=== PATIENT | male | born 1965 | race Caucasian/White ===

== ENCOUNTER 2017-06-29 09:55 | Emergency (ER) | payer SELFPAY ==
[2017-06-29] MEDS ORDERED: Tetan/Diph/Pertus SYR(Tdap)* 0.5 ML SYR(BOOSTRIX) use SYR IM ONE (11:11)
[2017-06-29] MEDS ORDERED: Lidocaine 2% PF * 5 ML VIAL INJ ONE (11:35)
--- NOTE | 2017-06-29 12:11 | UC ---
Laceration HPI - HPI Summary HPI Summary: 930 AM CUT LEFT THUMB ON CAN LID - History Of Current Complaint Chief Complaint: UCLaceration Stated Complaint: HAND LAC/INJURY Time Seen by Provider: 06/29/17 11:09 Hx Obtained From: Patient Laceration Location: Finger - left thumb Mechanism Of Injury: Sharp Trauma Onset/Duration: Sudden Onset, Lasting Hours Severity: Moderate - Allergies/Home Medications Allergies/Adverse Reactions: Allergies Allergy/AdvReac Type Severity Reaction Status Date / Time No Known Allergies Allergy Verified 06/29/17 10:55 Home Medications: Home Medications NK [No Home Medications Reported] 06/29/17 [History Confirmed 06/29/17] PMH/Surg Hx/FS Hx/Imm Hx Previously Healthy: Yes - Surgical History Surgical History: Yes Surgery Procedure, Year, and Place: knee - Family History Known Family History: Negative: Blood Disorder - Social History Occupation: Employed Full-time Lives: With Family Alcohol Use: None Substance Use Type: None Smoking Status (MU): Never Smoked Tobacco Review of Systems Constitutional: Negative Skin: Other - LACERATION LEFT THUMB Eyes: Negative ENT: Negative Respiratory: Negative Cardiovascular: Negative Gastrointestinal: Negative Genitourinary: Negative Motor: Negative Neurovascular: Negative Musculoskeletal: Negative Neurological: Negative Psychological: Negative All Other Systems Reviewed And Are Negative: Yes Physical Exam Triage Information Reviewed: Yes Appearance: Well-Appearing, No Pain Distress, Well-Nourished Vital Signs: Initial Vital Signs Temp 98.3 F 06/29/17 10:56 Pulse 84 06/29/17 10:56 Resp 16 06/29/17 10:56 BP 190/115 06/29/17 10:56 Pulse Ox 100 06/29/17 10:56 Vital Signs Reviewed: Yes Eye Exam: Normal ENT Exam: Normal ENT: Positive: Normal ENT inspection, TMs normal Dental Exam: Normal Neck exam: Normal Neck: Positive: Supple, Nontender Respiratory Exam: Normal Respiratory: Positive: Chest non-tender, Lungs clear, Normal breath sounds, No respiratory distress Cardiovascular Exam: Normal Cardiovascular: Positive: RRR, No Murmur, Pulses Normal Abdominal Exam: Normal Musculoskeletal Exam: Normal Musculoskeletal: Positive: Strength Intact, ROM Intact Neurological Exam: Normal Psychological Exam: Normal Skin: Positive: Other - LACERATION LEFT THUMB Laceration Repair - Laceration Repair 1 Description: Irregular Laceration Size After Repair: Length (cm) - 5, Width (mm) - 6, Depth (mm) - 8 Modified For Repair: No Type Injection: Digital Anesthesia Used: 2.0% Lido Cleansing Completed Via Routine Prep: Yes Irrigation With Pressure Irrigation Device: Yes Closure Material: Sutures - 5 Closure Method: Single Layer Suture Of: Skin, SQ Suture Type: Prolene Laceration Course/Dx - Differential Dx - Laceration/Wound Differental Diagnoses: Laceration Provider Diagnoses: LEFT THUMB LACERATION Discharge - Discharge Plan Condition: Stable Disposition: HOME Patient Education Materials: Finger Laceration (ED), Diphtheria Tetanus and Pertussis Vaccine (ED), Hypertension (ED) Referrals: No Primary Care Phys,NOPCP [Primary Care Provider] - [facility] [place] [facility] [Outside] Additional Instructions: ELEVATED BLOOD PRESSURE: TODAY DURING CLINICAL EVALUATION YOUR BLOOD PRESSURE WAS NOTED TO BE ELEVATED. TODAY IT WAS __179___/__105____; NORMAL BLOOD PRESSURE IS 120/80. PLEASE SET AN APPOINTMENT WITHIN THE NEXT WEEK WITH YOUR PRIMARY CARE PROVIDER (OR PROMPTLY ESTABLISH PRIMARY CARE) REGARDING PROMPT RE- EVALUATION OF THIS CONCERN. HIGH BLOOD PRESSURE IS THE MOST COMMON AND HIGHLY IMPORTANT RISK FACTOR FOR THE FOLLOWING: HEART FAILURE, HEART ATTACK ( MYOCARDIAL INFARCTION), INTRACEREBRAL HEMORRHAGE, ISCHEMIC & NONISCHEMIC STROKES , WELL CHRONIC KIDNEY DISEASE AND END STAGE RENAL DISEASE. PLEASE CONSULT AND DISCUSS MANAGEMENT OF THIS FINDING WITH YOUR PRIMARY CARE PHYSICIAN. PLEASE RETURN TO HAVE SUTURES REMOVED ON TEN DAYS
[2017-06-29 12:12] VITALS: BP 179/105
== END 2017-06-29 12:44 | disposition home or self-care (01) ==
LOC: UCEAST 09:55
DX: S61.012A Laceration without foreign body of left thumb without damage to nail, initial encounter (principal); W26.8XXA Contact with other sharp object(s), not elsewhere classified, initial encounter; Y93.9 Activity, unspecified; Y92.9 Unspecified place or not applicable; Z23 Encounter for immunization
CPT/HCPCS: 12002; 90471; 90715; 99202; G0463